=== PATIENT | female | born 1965 | race Caucasian/White ===

== ENCOUNTER 2022-07-02 10:01 | Emergency (ER) | payer OTHER, BC ==
[2022-07-02] MEDS ORDERED: Acetaminophen/oxyCODONE 325-10 MG Tab PO ONE (10:22)
[2022-07-02 11:40] VITALS: BP 112/72; PULSE 75
== END 2022-07-02 11:40 | disposition home or self-care (01) ==
LOC: MW.ED 10:01
DX: S22.31XA Fracture of one rib, right side, initial encounter for closed fracture (principal); Z88.1 Allergy status to other antibiotic agents; Z86.16 Personal history of COVID-19; W18.30XA Fall on same level, unspecified, initial encounter; Y99.0 Civilian activity done for income or pay
CPT/HCPCS: 71101; 72072; 99283; A9270

== ENCOUNTER 2023-03-29 08:20 | Day surgery (SDC) | payer BC ==
[~2023-03-29 08:20] MED LIST: Lactated Ringers 1,000 ML IV SCH
[2023-03-29] MEDS ORDERED: Lidocaine 2% 5 ML SDV ONE (10:06)
[2023-03-29] MEDS ORDERED: Propofol 200 MG/20 ML SDV ONE ×2 (10:07→10:25)
[2023-03-29] MEDS ORDERED: Lactated Ringers 1,000 ML IV SCH (10:45)
[2023-03-29 13:19] VITALS: BP 107/56; PULSE 61
== END 2023-03-29 11:08 | disposition home or self-care (01) ==
LOC: MW.SDS 08:20
PROVIDERS: ATTEND Surgery
DX: Z12.11 Encounter for screening for malignant neoplasm of colon (principal); F31.9 Bipolar disorder, unspecified; E78.00 Pure hypercholesterolemia, unspecified; E03.9 Hypothyroidism, unspecified; F41.9 Anxiety disorder, unspecified; F31.60 Bipolar disorder, current episode mixed, unspecified; E66.9 Obesity, unspecified; Z68.33 Body mass index [BMI] 33.0-33.9, adult; Z87.891 Personal history of nicotine dependence; Z90.710 Acquired absence of both cervix and uterus; Z79.899 Other long term (current) drug therapy; Z88.2 Allergy status to sulfonamides
CPT/HCPCS: 45378; J2704; J7120; J3490

== ENCOUNTER 2024-12-30 06:18 | Emergency (ER) | payer BC ==
[2024-12-30 06:47] VITALS: BP 130/70; PULSE 84
[2024-12-30 06:51] LABS: GLUCOSE,URINE NEGATIVE (NEGATIVE); OCCULT BLOOD,URINE LARGE (NEGATIVE)
[2024-12-30 06:57] LABS: APPEARANCE,URINE HAZY
[2024-12-30 07:03] LABS: EPITHELIAL CELLS,URINE RARE (NONE-FEW)
== END 2024-12-30 07:19 | disposition home or self-care (01) ==
LOC: MW.ED 06:18
DX: N39.0 Urinary tract infection, site not specified (principal); E66.9 Obesity, unspecified; Z68.39 Body mass index [BMI] 39.0-39.9, adult; Z86.16 Personal history of COVID-19; Z90.710 Acquired absence of both cervix and uterus; Z88.8 Allergy status to other drugs, medicaments and biological substances; Z79.899 Other long term (current) drug therapy
CPT/HCPCS: 81001; 87086; 99283